=== PATIENT | female | born 1985 | race Asian ===

== ENCOUNTER 2022-07-29 15:14 | Emergency (ER) | payer BC ==
[~2022-07-29] VITALS: Ht 149.9 cm; Wt 66.7 kg
[2022-07-29 15:30] VITALS: BP_SYST 156
[2022-07-29] MEDS ORDERED: PENI500T PO (16:28)
[2022-07-29 16:54] VITALS: BP_SYST 139
== END 2022-07-29 16:54 | disposition home or self-care (01) ==
LOC: SED 15:14
DX: K04.7 Periapical abscess without sinus (principal); K08.89 Other specified disorders of teeth and supporting structures; Z79.899 Other long term (current) drug therapy
CPT/HCPCS: 99283